=== PATIENT | female | born 1975 | race Two or more races ===

== ENCOUNTER 2020-12-16 10:53 | Emergency (ER) | payer SELFPAY ==
[2020-12-16 11:51] VITALS: BP 160/85
[2020-12-16] MEDS ORDERED: methylPREDNISolone SOD SUCC 40 MG/ML VL IM ONE (13:00)
== END 2020-12-16 13:32 | disposition home or self-care (01) ==
LOC: ER 10:53
DX: M79.672 Pain in left foot (principal)
CPT/HCPCS: 73630; 96372; 99283; J2920